=== PATIENT | female | born 1930 | race Two or more races ===

== ENCOUNTER 2018-03-17 13:53 | Emergency (ER) | payer OTHER ==
[~2018-03-17] VITALS: Ht 160 cm; Wt 61.2 kg
[~2018-03-17 13:53] MED LIST: ATENOLOL50 MG PO; LIPITOR20 MG PO; PACERONE100 MG PO; PLAVIX75 MG PO; SYNTHROID100 MCG PO; WELLBUTRIN SR150 MG; XANAX XR0.5 MG
[2018-03-17] MEDS ORDERED: PLAVIX75 MG (14:34)
[2018-03-17] MEDS ORDERED: ASPIRIN325 MG (14:34)
== END 2018-03-17 20:35 | disposition home or self-care (01) ==
LOC: ER 13:53 → CPU-OBS 14:56 → ER 14:56
DX: R07.89 Other chest pain (principal)

== ENCOUNTER 2020-10-23 14:17 | Outpatient (CLI) | payer OTHER ==
[~2020-10-23 14:17] MED LIST changes: +ASPIRIN325 MG; +PLAVIX75 MG
== END 2020-10-23 14:19 | disposition home or self-care (01) ==
LOC: RAD 14:17
PROVIDERS: ATTEND General Practice
DX: S00.93XA Contusion of unspecified part of head, initial encounter (principal)